=== PATIENT | male | born 1985 | race Asian ===

== ENCOUNTER 2017-01-25 05:44 | Emergency (ER) | payer OTHER ==
[~2017-01-25] VITALS: Ht 180.3 cm; Wt 104.3 kg
[2017-01-25] MEDS ORDERED: GLIMEPIRIDE2 MG PO (06:00)
[2017-01-25] MEDS ORDERED: JANUMET 50-1,01 EACH PO (06:00)
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
[2017-01-25] MEDS ORDERED: CYCLOBENZAPRINE10 M1 PO (07:08)
[2017-01-25] MEDS ORDERED: IBUPROFEN800 M1 PO (07:08)
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
[2017-01-25 07:53] VITALS: BP 122/89
== END 2017-01-25 08:08 ==
LOC: ERH 05:44
DX: M54.5 Low back pain (principal)
CPT/HCPCS: 72100; 96372; J1885